=== PATIENT | male | born 1955 | race Caucasian/White ===

== ENCOUNTER 2018-10-27 14:41 | Emergency (ER) | payer MEDICAID ==
[~2018-10-27] VITALS: Ht 175.3 cm; Wt 86.2 kg
[2018-10-27] MEDS ORDERED: TRAZODONE (15:01)
[2018-10-27] MEDS ORDERED: SERT50TA14 (15:01)
[2018-10-27] MEDS ORDERED: WELLBUTRIN (15:01)
[2018-10-27] MEDS ORDERED: IBUPROFEN 800 MG TABLET PO ONE (15:15)
--- NOTE | 2018-10-27 15:18 | NUR ---
PT IS IN ROOM # 2A. DR LEAL EVALUATED THE PT.
[2018-10-27] MEDS ORDERED: IBUPROFEN 800 MG TABLET ONE (15:19)
--- NOTE | 2018-10-27 16:06 | NUR ---
pt was d/c'D to home. after er md evaluation. d/c instructions given to the pt.
[2018-10-27 16:09] VITALS: BP 141/77
== END 2018-10-27 16:10 | disposition home or self-care (01) ==
LOC: ER 14:50
DX: S20.212A Contusion of left front wall of thorax, initial encounter (principal); F41.9 Anxiety disorder, unspecified; F32.9 Major depressive disorder, single episode, unspecified; Z88.0 Allergy status to penicillin; Z79.899 Other long term (current) drug therapy; W22.8XXA Striking against or struck by other objects, initial encounter; Y93.89 Activity, other specified; Y92.89 Other specified places as the place of occurrence of the external cause; Y99.8 Other external cause status
CPT/HCPCS: 71101; A4663

== ENCOUNTER 2018-11-10 13:57 | Emergency (ER) | payer MEDICAID ==
[~2018-11-10] VITALS: Ht 175.3 cm; Wt 86.2 kg
[~2018-11-10 13:57] MED LIST: SERT50TA14; TRAZODONE; WELLBUTRIN
--- NOTE | 2018-11-10 14:07 | NUR ---
PT NOT IN WAITING ROOM WHEN CALLED FOR TRIAGE.
--- NOTE | 2018-11-10 14:20 | NUR ---
PATIENT WAS MSE BY DR LUX IN ROOM 04B. [facility] A & O X3
--- NOTE | 2018-11-10 14:37 | NUR ---
Patient discharged to home in stable conditon. Written and verbal after care instructions given. Patient verbalizes understanding of instructions.
== END 2018-11-10 14:40 | disposition home or self-care (01) ==
LOC: ER 13:59
DX: F41.9 Anxiety disorder, unspecified (principal); F32.9 Major depressive disorder, single episode, unspecified; Z76.0 Encounter for issue of repeat prescription; Z88.0 Allergy status to penicillin; Z79.899 Other long term (current) drug therapy
CPT/HCPCS: A4663

== ENCOUNTER 2018-12-30 17:37 | Emergency (ER) | payer MEDICAID ==
[~2018-12-30] VITALS: Ht 175.3 cm; Wt 86.2 kg
[2018-12-30] MEDS ORDERED: MORPHINE SULFATE 4 MG/1 ML DISP.SYRIN ONE (17:58)
[2018-12-30] MEDS ORDERED: MORPHINE SULFATE 4 MG/1 ML DISP.SYRIN IM ONE (18:00)
--- NOTE | 2018-12-30 18:20 | NUR ---
Patient discharged to home in stable conditon. Written and verbal after care instructions given. Patient verbalizes understanding of instructions.pt walks in steady gait.
[2018-12-30 18:21] VITALS: BP 139/71
== END 2018-12-30 18:22 | disposition home or self-care (01) ==
LOC: ER 17:45
DX: M54.5 Low back pain (principal); F10.129 Alcohol abuse with intoxication, unspecified; M25.561 Pain in right knee; F41.9 Anxiety disorder, unspecified; F32.9 Major depressive disorder, single episode, unspecified; Z88.0 Allergy status to penicillin; Z79.899 Other long term (current) drug therapy; Y90.9 Presence of alcohol in blood, level not specified
CPT/HCPCS: 73564; 96372; 99283; J2270; A4663

== ENCOUNTER 2021-10-03 16:17 | Emergency (ER) | payer SELFPAY ==
--- NOTE | 2021-10-03 16:40 | NUR ---
Pt left w/o being triaged.
== END 2021-10-03 16:41 | disposition left against medical advice (07) ==
LOC: ER 16:22
DX: Z53.21 Procedure and treatment not carried out due to patient leaving prior to being seen by health care provider (principal)

== ENCOUNTER 2022-06-06 22:40 | Inpatient (IN) | payer OTHER ==
[~2022-06-06] VITALS: Ht 175.3 cm; Wt 91.2 kg
--- NOTE | 2022-06-06 23:09 | NUR ---
[employer] placed patient on a 5150 hold for DTS.
[2022-06-06 23:15] LABS: HEMATOCRIT 43.1 % (36.7-47.1); MEAN CORPUSCULAR HEMOGLOBIN 33.8 uug (23.8-33.4); PLATELET COUNT (AUTO) 140 K/uL (152-348)
--- NOTE | 2022-06-06 23:32 | NUR ---
Called poison control and spoke to Moi about parameters for pt's Overdose on Trazadone tablets. notified.
[2022-06-06 23:35] LABS: CARBON DIOXIDE 26 mmol/L (21-32); CHLORIDE 106 mmol/L (98-107); CREATININE 0.8 mg/dL (0.6-1.3); GLUCOSE 108 mg/dL (74-106); POTASSIUM 3.7 mmol/L (3.5-5.1); UREA NITROGEN, BLOOD 14 mg/dL (7-18)
[2022-06-06 23:37] LABS: ETHANOL 244 MG/DL (0-0)
[2022-06-06 23:41] LABS: ALANINE AMINOTRANSFERASE 38 U/L (16-63); ALKALINE PHOSPHATASE 112 U/L (50-136); ASPARTATE AMINOTRANSFERASE 31 U/L (15-37); BILIRUBIN,DIRECT 0.1 mg/dL (0.0-0.2); BILIRUBIN,TOTAL 0.3 mg/dL (0.2-1.0); TOTAL PROTEIN, SERUM 6.9 g/dL (6.4-8.2)
[2022-06-06 23:42] LABS: ACETAMINOPHEN < 2.0 ug/mL (10-30)
[2022-06-07 00:02] LABS: *AMPHETAMINE, URINE NEGATIVE (NEGATIVE); *BILIRUBIN,URIN NEGATIVE (NEGATIVE); *BLOOD, URINE NEGATIVE (NEGATIVE); *CANNABINOID, URINE NEGATIVE (NEGATIVE); *CLARITY,URINE CLEAR (CLEAR); *COCCAINE, URINE NEGATIVE (NEGATIVE); *COLOR,URINE YELLOW (YELLOW); *KETONES,URINE NEGATIVE (NEGATIVE); *PHENCYCLIDINE SCREEN,URINE NEGATIVE (NEGATIVE); *UROBILINOGEN,URINE 0.2 E.U./dl (NORMAL); LEUKOCYTE ESTERASE ,URINE NEGATIVE (NEGATIVE); NITRITE, URINE NEGATIVE (NEGATIVE); PH,URINE 5.5 (5.0-8.0); UGLUCOSE NEGATIVE (NEGATIVE)
--- NOTE | 2022-06-07 00:45 | NUR ---
Patient was provided with a meal and is in bed eating comfortably.
--- NOTE | 2022-06-07 01:34 | NUR ---
Called Professor Of Physical Education for sitter. Per gatehouse attendant no sitter available.
--- NOTE | 2022-06-07 07:37 | NUR ---
patient is awake and alert with no complaints. Chata Oconnor at bedside for constant observation
--- NOTE | 2022-06-07 08:41 | NUR ---
DESIREE Gill was at bedside
--- NOTE | 2022-06-07 11:01 | NUR ---
Patient ate breakfast. Awaiting for placement. patient is awake and alert with no complaints
--- NOTE | 2022-06-07 11:22 | NUR ---
REPORT GIVEN TO ERIC IN MHU. PATIENT AWARE OF PENDING ADMISSION
[2022-06-07] MEDS ORDERED: BLOOD SUGAR DIAGNOSTIC 1 EACH STRIP VI ONE (11:45)
[2022-06-07] MEDS ORDERED: ACETAMINOPHEN 325 MG TABLET PO PRN (11:45)
[2022-06-07] MEDS ORDERED: MAG HYDROX/AL HYDROX/SIMETH 30 ML LIQUID UDC PO PRN (11:45)
[2022-06-07] MEDS ORDERED: CLONAZEPAM 0.5 MG TABLET PO PRN (11:45)
[2022-06-07] MEDS ORDERED: MAGNESIUM HYDROXIDE 30 ML LIQUID UDC PO PRN (11:45)
--- NOTE | 2022-06-07 11:45 | NUR ---
GPS ADMISSION NOTE : Report received from ER [facility] on a 5150 for DTS . Per hold, the patient took a bottle of trazodone to end his life, This patient is reported to be living in his car. Upon face to face evaluation, the patient is flat affect soft spoken, speech is clear. He does however ,deny active SI. Medication reconcile done by ER. VS are stable, the patient is ambulatory and continent. A Patients rights hand book and Patient Advisement were provided and discussed. Orientation to the environment given but reinforcement needed. Fall and safety precaution implemented. Patient contracted for safety. Will continue to monitor.
[2022-06-07 12:00] VITALS: BP 153/65
[2022-06-07 15:03] VITALS: BP 144/64
--- NOTE | 2022-06-07 18:17 | NUR ---
GPS: Patient isolative, withdrawn, denies pain or discomforts, Denies SI/HI/VA/AH. Emotional support provided.
[2022-06-07 19:54] VITALS: BP 127/60
[2022-06-07] MEDS: TEMAZEPAM 7.5 MG CAPSULE PO PRN (21:33)
--- NOTE | 2022-06-08 04:48 | NUR ---
Patient asleep but arousable, patient calm and cooperative with care, has episode of anxiety and insomnia. Patient request medication for both symptoms. cont to monitor.
--- NOTE | 2022-06-08 05:02 | NUR ---
Patient claim he had loose bowel movement twice in this shift but keep forgetting to show to staff his diarrhea. cont to monitor.
[2022-06-08 07:30] VITALS: BP 131/69
[2022-06-08] MEDS: DIVALPROEX 125 MG TABLET.DR PO SCH ×2 (11:43→20:47)
[2022-06-08] MEDS: buPROPion 100 MG TABLET PO SCH (11:44)
[2022-06-08] MEDS: DIPHENOXYLATE HCL/ATROP SULF TABLET PO PRN (13:12)
--- NOTE | 2022-06-08 15:16 | NUR ---
Received patient sleeping in his room. Patient is A/O X 3 to person, place. Patient is calm, cooperative with nursing care, compliant with medications, engage in verbal conversations, ambulatory without assistance, continent. Patient states "I'm having diarrhea, can you please call the doctor? I can show you". Materials Mgmt Tech was called and prescribed Lonox 1 tab q6hr PRN, will be monitored for effectiveness. Emotional support provided. Fall and safety precautions implemented.
[2022-06-08 15:47] VITALS: BP 131/65
--- NOTE | 2022-06-08 15:56 | NUR ---
MARIA Initial Discharge NOte: Pt currently resides out of his car. Pt reproted he was previously in an independent living and left there. MARIA will continue to work with pt and MD to ensure a proper discharge plan. Pt at this time reuses a SNF and would like to discharge to a board and care or self.
[2022-06-08 20:06] VITALS: BP 136/64
[2022-06-08] MEDS: TEMAZEPAM 7.5 MG CAPSULE PO PRN (21:40)
--- NOTE | 2022-06-09 04:54 | NUR ---
Received patient in the activity area watching tv, patient is with a pleasant attitude when approached. He is A&0x4. He denies SI, HI, VH, pearl safety with the commercial real estate underwriter. Snacks and fluids provided. He is med-compliant. Patient ambulatory and self care. Temazepam given with effectivity as patient sleeps well this shift, no distress noted. Frequent monitoring and all safety measures in placed,
[2022-06-09 07:32] VITALS: BP 117/57
[2022-06-09] MEDS: DIVALPROEX 125 MG TABLET.DR PO SCH ×2 (09:03→20:05)
[2022-06-09] MEDS: DIPHENOXYLATE HCL/ATROP SULF TABLET PO PRN (09:03)
[2022-06-09] MEDS: buPROPion 100 MG TABLET PO SCH (09:03)
[2022-06-09] MEDS: ARIPIPRAZOLE 2 MG TABLET PO SCH (12:21)
--- NOTE | 2022-06-09 14:26 | NUR ---
Patient is A/O X 4 to person, place, situation. Patient is cooperative, depressed and anxious at times, compliant with medications, cooperative with nursing care, preoccupied. Patient requires no assistance with ADL. Patient is encourage to verbalize concerns. Fall and safety precautions implemented.
--- NOTE | 2022-06-09 15:12 | NUR ---
MARIA Substance Use Intervention: SW completed a substance use intervention with the pt. Pt was appreciative for the assessment and continued to state he is not going to use substances again.
[2022-06-09 15:56] VITALS: BP 128/63
[2022-06-09 19:52] VITALS: BP 132/61
[2022-06-09] MEDS: TEMAZEPAM 7.5 MG CAPSULE PO PRN (22:24)
--- NOTE | 2022-06-10 04:43 | NUR ---
Received in activity room, alert oriented, no complains of pain, patient calm and cooperative with medications and care, patient noted with slight signs of anxiety, request sleep meds before goes to bed, sleeping meds effective, cont to monitor.
[2022-06-10] MEDS: DIPHENOXYLATE HCL/ATROP SULF TABLET PO PRN (06:03)
--- NOTE | 2022-06-10 06:54 | NUR ---
Patient complain of loose bowel movement x 2, patient show's his loose stool, given Lomotil as ordered, with some help at this time, encouraged to drink fluid water, cont to monitor.
[2022-06-10 07:36] VITALS: BP 124/60
[2022-06-10] MEDS: ARIPIPRAZOLE 2 MG TABLET PO SCH (09:41)
[2022-06-10] MEDS: DIVALPROEX 125 MG TABLET.DR PO SCH ×2 (09:41→20:25)
[2022-06-10] MEDS: buPROPion 100 MG TABLET PO SCH (09:41)
--- NOTE | 2022-06-10 10:20 | NUR ---
Pt received sitting up on bed resting comfortably. Pt is quite pleasant, friendly, interactive and engaging with staff. Admits to feeling depressed over his homeless situation, but denies SI. Able to make all needs known. Compliant with medications and care.
[2022-06-10 16:34] VITALS: BP 128/56
[2022-06-10 20:00] VITALS: BP 126/63
[2022-06-10] MEDS: TEMAZEPAM 7.5 MG CAPSULE PO PRN (22:16)
--- NOTE | 2022-06-11 05:01 | NUR ---
Patient requested medication to help with trouble sleeping. Temazepam 7.5 mg po prn was given @ 2216 hrs. Medication was effective upon reassessment.
[2022-06-11 07:49] VITALS: BP 117/62
[2022-06-11] MEDS: ARIPIPRAZOLE 2 MG TABLET PO SCH (08:29)
[2022-06-11] MEDS: buPROPion 100 MG TABLET PO SCH (08:29)
[2022-06-11] MEDS: DIVALPROEX 125 MG TABLET.DR PO SCH (08:29)
[2022-06-11] MEDS: DIPHENOXYLATE HCL/ATROP SULF TABLET PO PRN (11:39)
--- NOTE | 2022-06-11 15:26 | NUR ---
Received patient alert and oriented x4 pleasant upon approach ,compliant with all medication ,attend in group activity with min. interaction with staffs and peers. denies any SI/Hi possible discharged in AM covid test done.
[2022-06-11 16:46] VITALS: BP 124/62
[2022-06-11] MEDS: CLONAZEPAM 0.5 MG TABLET PO PRN (18:54)
[2022-06-11 19:40] VITALS: BP 110/62
[2022-06-11] MEDS: DIVALPROEX 250 MG TABLET.DR PO SCH (20:30)
[2022-06-11] MEDS ORDERED: DIVALPROEX 125 MG TABLET.DR PO SCH (21:00)
[2022-06-11] MEDS: TEMAZEPAM 7.5 MG CAPSULE PO PRN (22:03)
[2022-06-12] MEDS: CLONAZEPAM 0.5 MG TABLET PO PRN (03:36)
--- NOTE | 2022-06-12 05:44 | NUR ---
Pt is A/O X4 ,pleasant on approach, Pt is still a bit anxious.Pt stay in dinning room watching TV then pt asked for sleeping PRN. Sleeping PRN given, Pt went to sleep and slept for 4.00 hour. Pt was awaken by another pt and was feeling anxious. PRN for anxiety given. Reassurance provided. Pt denies SI/HI. Pt is compliant with medications and Nursing care. Safety measurers put in place. Continue to monitor for safety, continue with treatment plan
[2022-06-12] MEDS: DIPHENOXYLATE HCL/ATROP SULF TABLET PO PRN (06:28)
[2022-06-12 07:47] VITALS: BP 104/61
[2022-06-12] MEDS: ARIPIPRAZOLE 2 MG TABLET PO SCH (08:27)
[2022-06-12] MEDS: DIVALPROEX 250 MG TABLET.DR PO SCH (08:27)
[2022-06-12] MEDS ORDERED: buPROPion XL 150 MG TAB.SR.24H PO SCH (09:00)
--- NOTE | 2022-06-12 14:24 | NUR ---
SW Discharge Note: Pt will be discharged with a tap card at 3PM. SW offered shelter facilities referred by [employer] insurance which pt refused. Pt stated he would like to be discharged on his own as he has a car and income. MARIA informed pts, MD and DNP of pts current discharge plan. Pt is alert and oriented x4. Pt is agreeable to discharge with a tap card. Pt does not have any family contact. Pt is aware and agreeable with discharge plan. Pt is alert and oriented x4. Pt denies any suicidal or homicidal ideation. Pt will follow-up with DOCTOR OF RADIOLOGY, Nestor Lawson within 7 days of discharge arranged by Cindy from [employer] ([phone]). Pt will also follow-up with correctional casework specialist, Danna. SW is awaiting psychiatrist and fleet maintenance foreman appointment details by Cindy from [employer] who will provide details to this SW to inform the pt. SW provided patient with a copy of the [facility] homeless directory which provides information on locations for hot meals, sack lunches, food pantries, and showers. MARIA provided a list of mental health clinics: [facility] [address] [place] [address], ; [facility] [address] [place] [address], ; [facility] [address] [place] [address], ; a list of medical clinics: [facility] [address], [place]. [place], ; [facility] [address], [address], [place] [address]; [facility] [address] [place] [address], ; and a list of substance abuse programs: [facility] Substance Abuse Self-helpline ; [facility] ; [facility] ; [facility] ; [facility] ; [facility] [phone]; [facility] [phone]. Patient signed the homeless waiver form, and a copy was placed in the chart. Pt presents with calm mood and congruent affect.
--- NOTE | 2022-06-12 14:57 | NUR ---
Discharged patient with a tap card at 3PM. SW offered custodial facilities referred by [employer] insurance which pt refused. Pt stated he would like to be discharged on his own as he has a car and income.Pt does not have any family contact. Pt is aware and agreeable with discharge plan. Pt is alert and oriented x4. Pt denies any suicidal or homicidal ideation. Pt will follow-up with RUBBER PRODUCTION MACHINE OPERATOR, Nestor Lawson within 7 days of discharge .all personal belonging taken by patient vital sign stable refused to wait for Lab result to be done.
== END 2022-06-12 14:45 | disposition home or self-care (01) | DRG 885 ==
LOC: ER 22:40 → GPS 06-07 11:29
PROVIDERS: ADMIT Nurse Practitioner Psychiatric/Mental Health; ATTEND Nurse Practitioner Acute Care
DX: F32.1 Major depressive disorder, single episode, moderate (principal); T43.212A Poisoning by selective serotonin and norepinephrine reuptake inhibitors, intentional self-harm, initial encounter; I69.354 Hemiplegia and hemiparesis following cerebral infarction affecting left non-dominant side; T51.0X2A Toxic effect of ethanol, intentional self-harm, initial encounter; Y92.89 Other specified places as the place of occurrence of the external cause; Z59.02 Unsheltered homelessness; F10.129 Alcohol abuse with intoxication, unspecified; Y90.8 Blood alcohol level of 240 mg/100 ml or more; Z62.810 Personal history of physical and sexual abuse in childhood; Z85.46 Personal history of malignant neoplasm of prostate; F41.9 Anxiety disorder, unspecified
CPT/HCPCS: 36415; 80164; 85025; 93005; A4663; G0480; J3490

== ENCOUNTER 2023-07-27 19:28 | Emergency (ER) | payer OTHER, MEDICAID | END 2023-07-27 19:31 | disposition left against medical advice (07) | LOC: ER 19:30 | DX: Z53.21 Procedure and treatment not carried out due to patient leaving prior to being seen by health care provider (principal) ==